=== PATIENT | female | born 1940 | race Caucasian/White ===

== ENCOUNTER → 2017-04-26 | Outpatient (CLI) | payer MEDICARE, BC ==
--- NOTE | 2017-04-26 11:22 | US ---
EXAMINATION TYPE: US thyroid st tissue head/neck DATE OF EXAM: 04/26/2017 COMPARISON: Thyroid ultrasound March 24, 2016 CLINICAL HISTORY: E04.2 MULTINODULAR GOITER. GLAND SIZE: Right Lobe: 4.1 x 1.4 x 1.6 cm Overall Parenchyma: heterogenous Left Lobe: 3.8 x 1.1 x 1.4 cm Overall Parenchyma: heterogeneous Isthmus Thickness: 0.4 cm NODULES RIGHT: # of nodules measured on right: 3 1. 0.9 X 0.7 x 1.0 cm echogenic mixed nodule at the upper pole with well-defined margins; . This n odule is wider than tall and shows no intranodular vascularity. Prior size: 0.7 x 0.5 x 0.5 cm 2. 0.7 X 0.7 x 0.4 cm mixed nodule at the mid pole with poorly defined margins; . This nodule is wi blank than tall and shows no intranodular vascularity. Prior size: 1.1 x 0.8 x 0.8 cm 3. 1.3 X 0.7 x 06 cm echogenic mixed nodule at the lower pole with well-defined margins; . This nod ule is wider than tall and shows no intranodular vascularity. Prior size: 1.5 x 1.0 x 0.9 cm LEFT: # of nodules measured on left: 3 1. 0.7 X 0.6 x 0.6 cm echogenic solid nodule at the lower pole with poorly defined margins; . This nodule is round and shows no intranodular vascularity. Prior size: not seen 2. 0.5 X 0.5 x 0.4 cm echogenic mixed nodule at the mid pole with well-defined margins; . This nodu le is wider than tall and shows intranodular vascularity. Prior size: no prior 3. 0.5 X 0.6 x 1.0 cm mixed nodule at the upper pole with poorly defined margins; . This nodule is wider than tall and shows no intranodular vascularity. Prior size:0.6x0.5x0.3 ISTHMUS: # of nodules measured in the isthmus: 0 Bilateral neck scanned, no evidence of lymphadenopathy. Thyroid gland remains normal in size and heterogeneous in appearance with scattered small nodules red emonstrated bilaterally. No new suspicious nodules are seen IMPRESSION: Findings consistent with multinodular goiter redemonstrated. No new suspicious greater than 1 cm aisha d or cystic nodules are seen.
== END | disposition home or self-care (01) ==
LOC: RADUSWWP 10:08
PROVIDERS: ATTEND Internal Medicine Endocrinology, Diabetes & Metabolism
DX: E04.2 Nontoxic multinodular goiter (principal)
CPT/HCPCS: 76536

== ENCOUNTER → 2017-05-07 | Outpatient (CLI) | payer MEDICARE, BC ==
[2017-05-07 13:18] LABS: Blood Urea Nitrogen 18 mg/dL (7-17); Non-African American GFR(MDRD) >60 (>60 ml/min/1.73 sqM)
--- NOTE | 2017-05-07 14:16 | CT ---
"EXAMINATION TYPE: CT angio abd aorta wo/w con DATE OF EXAM: 05/07/2017 HISTORY: Abdominal aortic aneurysm, without rupture CT DLP: 515.6mGycm Automated Exposure Control for Dose Reduction was Utilized. CONTRAST: CT scan of the abdomen and pelvis is performed without and with IV Contrast, patient injected with 10 0 mL of Omnipaque 350. COMPARISON: None. FINDINGS: Aorta appears to be of normal caliber however there appears to be a localized area of aortic dissecti on at the L4 level with an intimal flap. There is localized aortic ectasia measuring 2.4 cm but no di agnostic evidence of aneurysm. Eccentric soft and calcified plaque noted within the area of saccular dilation. This appears to be a short segmental area of dissection extending approximately 2.5 cm ceph alad. Diffuse atherosclerotic changes are seen. Visualized iliac vasculature of normal caliber. Visualized mesenteric vasculature demonstrates atherosclerotic changes but enhances normally. Atherosclerotic changes involving the renal arteries are noted. The abdominal viscera demonstrates no acute finding. Small periumbilical hernia noted containing peritoneal fat. Indeterminate left adrenal nodule measuring 1.6 cm. Diverticulosis of the colon. Suspect a duodenal diverticulum Hypertrophic and degenerative changes of the spine are seen at multiple levels. IMPRESSION: 1. Aorta appears to be of normal caliber however there appears to be a localized area of aortic diss ection at the L4 level with an intimal flap. There is localized aortic ectasia measuring 2.4 cm but n o diagnostic evidence of aneurysm. This appears to be a short segmental area of dissection extending approximately 2.5 cm. Extensive aortic bifurcation. 2. Indeterminate 1.6 cm left adrenal mass A Red message has been communicated to Shahid Blanton MD via the [employer] | Critical Result s ystem on 05/07/2017 2:13 PM, Message ID [id number]."
== END | disposition home or self-care (01) ==
LOC: RADCTMAIN 12:39
PROVIDERS: ATTEND Internal Medicine Cardiovascular Disease
DX: I77.819 Aortic ectasia, unspecified site (principal)
CPT/HCPCS: 82565; 84520; 75635; 36415; Q9967

== ENCOUNTER → 2018-02-07 | Outpatient (CLI) | payer MEDICARE, BC ==
--- NOTE | 2018-02-07 09:58 | MM ---
Reason for exam: additional evaluation requested from prior study. Last mammogram was performed 5 years and 5 months ago. History: Patient is postmenopausal, had previous chest radiation therapy at age 60, and has history of breast cancer at age 58. Family history of premenopausal breast cancer in mother at age 42. Benign excisional biopsy of the left breast, August 10, 2008. Excisional biopsy of the right breast, 2000. Lumpectomy of the left breast, 2000. Radiation therapy of the left breast, 2000. Took hormonal contraceptives for 1 year beginning at age 22. Taking other hormone for 18 years beginning at age 50. Physical Findings: Nurse Summary: 0.25 x 2cm nodule in the left breast at 9:30 (nurse dw). MG 3D Diag Mammo W/Cad DENNISE Bilateral CC and MLO view(s) were taken. Prior study comparison: December 28, 2016, mammogram. December 27, 2015, mammogram. September 12, 2012, CAD bilateral diagnostic mammogram. There are scattered fibroglandular densities. There are bilateral stable well circumscribed masses back to 2011. There are benign appearing scattered bilateral calcifications. No suspicious abnormality. Left post therapy changes. Right post excisional biopsy changes. These results were verbally communicated with the patient and result sheet given to the patient on 02/07/18. ASSESSMENT: Benign, BI-RAD 2 RECOMMENDATION: Follow-up diagnostic mammogram of both breasts in 1 year.
== END | disposition home or self-care (01) ==
LOC: RADMAMWWP 08:59
PROVIDERS: ATTEND Family Medicine
DX: Z08 Encounter for follow-up examination after completed treatment for malignant neoplasm (principal); Z85.3 Personal history of malignant neoplasm of breast
CPT/HCPCS: 77066; G0279

== ENCOUNTER → 2018-04-05 | Outpatient (CLI) | payer MEDICARE, BC ==
[2018-04-05 12:45] LABS: T4, Free (Free Thyroxine) 1.03 ng/dL (0.78-2.19)
== END | disposition home or self-care (01) ==
LOC: LABWHC1 11:53
PROVIDERS: ATTEND Internal Medicine Endocrinology, Diabetes & Metabolism
DX: E04.2 Nontoxic multinodular goiter (principal)
CPT/HCPCS: 36415; 84439; 84443

== ENCOUNTER 2018-04-20 10:00 | Day surgery (SDC) | payer MEDICARE, BC ==
[2018-04-15 11:49] VITALS: BMI 28.3
[~2018-04-20 10:00] MED LIST: LACTATED RINGERS 1,000 ML IV SCH
[2018-04-20 10:34] VITALS: RESP 16; TEMP 97.5
[2018-04-20] MEDS ORDERED: LIDOCAINE 1% 20 ML VIAL (10MG/ML) FOR IV START INTRADERMA ONE (10:34)
[2018-04-20] MEDS ORDERED: PROPOFOL 10 MG/ML 20 ML VIAL IV ONE (10:41)
[2018-04-20] MEDS ORDERED: LIDOCAINE 1% INJ 10MG/ML (20 ML MDV) ONE (10:41)
[2018-04-20] MEDS ORDERED: fentaNYL (PF) 50 MCG/ML 2 ML AMP ONE (10:41)
--- NOTE | 2018-04-20 10:56 | P.PCN ---
Date of Procedure: 04/20/18 Procedure(s) Performed: BRIEF HISTORY: Patient is a 77-year-old, pleasant, white female, scheduled for an upper endoscopy as a part of evaluation of long-standing history of GERD and has been on Prilosec 20 mg twice daily for several years. For the last few months she has been having worsening heartburn and epigastric pain and hence scheduled for an upper endoscopy to evaluate further. PROCEDURE PERFORMED: Esophagogastroduodenoscopy with biopsy. PREOPERATIVE DIAGNOSIS: And history of GERD/intermittent epigastric pain. IV sedation per anesthesia. PROCEDURE: After informed consent was obtained, the patient was brought into the endoscopy unit. IV sedation was administered by Anesthesia under continuous monitoring. Initially the Olympus GIF-140 video endoscope was inserted into the mouth. Esophagus intubated without any difficulty. It was gradually advanced into the stomach and duodenum and carefully examined. The bulb and the second part of the duodenum appeared normal. The scope at this time was withdrawn to the stomach, adequately insufflated with air, and upon careful examination, mucosa of the antrum, body, multiple gastric polyps and biopsies were done from this area. The cardia and the fundus appeared normal. The scope was then withdrawn into the esophagus. Small sliding Hiatal hernia noted. The GE junction was located at 36 cm from the incisors. The esophagus appeared normal. There were no erosions or ulcerations seen and the patient tolerated the procedure well. IMPRESSION: 1. Multiple gastric polyps. 2. Small sliding Hiatal hernia but no evidence of esophagitis or Gonzalez's esophagus. RECOMMENDATIONS: The findings of this examination were discussed with the patient as well as a family. She will follow with the biopsy results She was advised to continue with Prilosec 20 mg twice daily, half hour before breakfast and dinnertime and use Zantac at bedtime. She was briefly treated about antireflux measures.
[2018-04-20 11:28] VITALS: BP 154/70; PULSE 55
== END 2018-04-20 11:37 | disposition home or self-care (01) ==
LOC: ORWHC2ENDO 10:00
PROVIDERS: ATTEND Internal Medicine Gastroenterology
DX: K29.50 Unspecified chronic gastritis without bleeding (principal); K44.9 Diaphragmatic hernia without obstruction or gangrene; I25.10 Atherosclerotic heart disease of native coronary artery without angina pectoris; I10 Essential (primary) hypertension; E78.5 Hyperlipidemia, unspecified; E07.9 Disorder of thyroid, unspecified; K21.9 Gastro-esophageal reflux disease without esophagitis; G47.33 Obstructive sleep apnea (adult) (pediatric); Z79.51 Long term (current) use of inhaled steroids; Z79.82 Long term (current) use of aspirin; Z79.899 Other long term (current) drug therapy
CPT/HCPCS: 88305; 43239; J2001; J3010; J2704

== ENCOUNTER → 2018-04-21 | Outpatient (CLI) | payer MEDICARE, BC ==
--- NOTE | 2018-04-21 13:36 | US ---
EXAMINATION TYPE: US thyroid st tissue head/neck DATE OF EXAM: 04/21/2018 COMPARISON: US CLINICAL HISTORY: E04.2 Nontoxic multinodular Goiter. F/U multinodular goiter GLAND SIZE: Right Lobe: 3.7 x 1.6 x 1.6 cm Overall Parenchyma: heterogenous Left Lobe: 3.7 x 1.3 x 1.1 cm Overall Parenchyma: heterogeneous Isthmus Thickness: 0.3 cm Thyroid gland is diffusely hypervascular. NODULES RIGHT: # of nodules measured on right: 2 1. 1.2 x 0.9 x 1.0 cm hypoechoic solid nodule at the mid pole with poorly defined margins; This nodu le is wider than tall and shows intranodular vascularity. Prior size: 1.3 x 0.7 x 0.6 cm 2. 0.9 X 0.6 x 1.0 cm isoechoic solid nodule at the upper pole with well-defined margins; This nodul e is wider than tall and shows intranodular vascularity. Prior size: 0.9 x 0.7 x 1.0 cm Other sub-centimeter nodules scattered throughout lobe LEFT: # of nodules measured on left: 1 1. 0.7 X 0.4 x 0.6 cm hypoechoic solid nodule at the mid pole with poorly defined margins; This no dule is wider than tall and shows intranodular vascularity. Prior size: 0.7 x 0.6 x 0.6 cm Other sub-centimeter nodules scattered throughout lobe Bilateral neck scanned, no evidence of lymphadenopathy. Multiple nodules bilaterally IMPRESSION: Similar size of the bilateral thyroid nodules. Thyroid gland is diffusely heterogenous and hypervascu lar. Correlate with laboratory values for underlying thyroiditis.
== END | disposition home or self-care (01) ==
LOC: RADUSWWP 11:52
PROVIDERS: ATTEND Internal Medicine Endocrinology, Diabetes & Metabolism
DX: E04.2 Nontoxic multinodular goiter (principal)
CPT/HCPCS: 76536

== ENCOUNTER → 2018-09-02 | Outpatient (CLI) | payer MEDICARE, BC ==
--- NOTE | 2018-09-02 12:44 | US ---
EXAMINATION TYPE: US abdomen complete DATE OF EXAM: 09/02/2018 COMPARISON: CT CLINICAL HISTORY: R10.9 ABD PAIN. Right side ABD pain EXAM MEASUREMENTS: Liver Length: 15.9 cm Gallbladder Wall: 0.2 cm CBD: 0.6 cm Spleen: 10.2 cm Right Kidney: 10.1 x 4.0 x 4.0 cm Left Kidney: 10.3 x 4.7 x 4.2 cm Pancreas: wnl, tail obscured by overlying bowel gas Liver: Difficult to penetrate Gallbladder: wnl Evidence for sonographic Nugent's sign: No CBD: wnl Spleen: wnl Right Kidney: wnl, lower pole gassed out Left Kidney: wnl, lower pole gassed out Upper IVC: wnl Abd Aorta: Distal "bulging" measuring 2.3 cm IMPRESSION: 1. Fusiform prominence of the distal abdominal aorta with greatest AP diameter of 2.3 cm. 2. There is limitation on the examination due to bowel gas
== END | disposition home or self-care (01) ==
LOC: RADUSWWP 10:10
PROVIDERS: ATTEND Family Medicine
DX: R10.9 Unspecified abdominal pain (principal)
CPT/HCPCS: 76700

== ENCOUNTER → 2019-03-20 | Outpatient (CLI) | payer MEDICARE, BC ==
--- NOTE | 2019-03-21 07:50 | MM ---
Reason for exam: additional evaluation requested from prior study. Last mammogram was performed 1 year and 1 month ago. History: Patient is postmenopausal, had previous chest radiation therapy at age 60, and has history of breast cancer at age 58. Family history of premenopausal breast cancer in mother at age 42. Benign excisional biopsy of the left breast, August 10, 2008. Excisional biopsy of the right breast, 2000. Lumpectomy of the left breast, 2000. Radiation therapy of the left breast, 2000. Took hormonal contraceptives for 1 year beginning at age 22. Taking other hormone for 18 years beginning at age 50. Physical Findings: Patient refused breast exam. MG 3D Diag Mammo W/Cad DENNISE Bilateral CC and MLO view(s) were taken. Prior study comparison: February 07, 2018, bilateral MG 3d diag mammo w/cad DENNISE. December 28, 2016, mammogram. There are scattered fibroglandular densities. There is chronic nodularity bilaterally. Post surgical and post therapy changes in the left breast. No significant new findings when compared with previous films. These results were verbally communicated with the patient and result sheet given to the patient on 03/20/19. ASSESSMENT: Benign, BI-RAD 2 RECOMMENDATION: Routine screening mammogram of both breasts in 1 year.
== END | disposition home or self-care (01) ==
LOC: RADMAMWWP 12:21
PROVIDERS: ATTEND Family Medicine
DX: Z85.3 Personal history of malignant neoplasm of breast (principal)
CPT/HCPCS: 77066; G0279; 77062

== ENCOUNTER → 2019-03-31 | Outpatient (CLI) | payer MEDICARE, BC ==
--- NOTE | 2019-03-31 14:30 | US ---
EXAMINATION TYPE: US thyroid st tissue head/neck DATE OF EXAM: 03/31/2019 COMPARISON: US 04/21/2018 CLINICAL HISTORY: E04.2 Goiter. Follow up GLAND SIZE: Right Lobe: 4.2 x 1.3 x 1.4 cm Overall Parenchyma: heterogenous Left Lobe: 3.5 x 1.1 x 1.0 cm Overall Parenchyma: heterogeneous Isthmus Thickness: 0.2 cm NODULES RIGHT: # of nodules measured on right: 2 1. 1.7 X 1.2 x 1.4 cm hypoechoic mixed nodule at the mid pole with poorly defined margins; . This nodule is wider than tall and shows no intranodular vascularity. Prior size: 1.2 x 0.9 x 1.0 cm 2. 0.9 X 0.6 x 0.8 cm hypoechoic mixed nodule at the upper pole with poorly defined margins; . This nodule is wider than tall and shows intranodular vascularity. Prior size: 0.9 x 0.6 x 1.0 cm LEFT: # of nodules measured on left: 1 1. 0.9 X 0.5 x 0.5 cm hypoechoic mixed nodule at the mid pole with well-defined margins; . This no dule is wider than tall and shows intranodular vascularity. Prior size: 0.7 cm ISTHMUS: # of nodules measured in the isthmus: 0 Bilateral neck scanned, no evidence of lymphadenopathy. IMPRESSION: Bilateral heterogeneous & hypervascular thyroid glands with innumerable subcentimeter thyroid nodules .
[2019-03-31 15:43] LABS: T4, Free (Free Thyroxine) 1.04 ng/dL (0.78-2.19)
== END | disposition home or self-care (01) ==
LOC: RADUSWWP 13:53
PROVIDERS: ATTEND Internal Medicine Endocrinology, Diabetes & Metabolism
DX: E04.2 Nontoxic multinodular goiter (principal)
CPT/HCPCS: 36415; 76536; 84439; 84443

== ENCOUNTER → 2019-06-26 | Outpatient (CLI) | payer MEDICARE, BC ==
[2019-06-26 19:09] LABS: T4, Free (Free Thyroxine) 0.9 ng/dL (0.80-1.80)
== END | disposition home or self-care (01) ==
LOC: LABWHC1 13:04
PROVIDERS: ATTEND Internal Medicine Endocrinology, Diabetes & Metabolism
DX: E04.2 Nontoxic multinodular goiter (principal)
CPT/HCPCS: 36415; 84439; 84443

== ENCOUNTER 2019-09-18 11:28 | Day surgery (SDC) | payer MEDICARE, BC ==
[2019-09-18 11:58] VITALS: RESP 16; TEMP 98
[2019-09-18] MEDS ORDERED: ALPRAZolam 0.25 MG TAB PO STA (12:03)
[2019-09-18 12:51] VITALS: BP 201/79; PULSE 68
== END 2019-09-18 12:45 | disposition home or self-care (01) ==
LOC: RADPROMAIN 11:28
PROVIDERS: ATTEND Internal Medicine Endocrinology, Diabetes & Metabolism
DX: E04.1 Nontoxic single thyroid nodule (principal); Z53.8 Procedure and treatment not carried out for other reasons

== ENCOUNTER 2019-09-18 12:42 | Observation (INO) | payer MEDICARE, BC ==
[2019-09-18] MEDS ORDERED: ASPIRIN 81 MG PO STA (13:12)
[2019-09-18] MEDS ORDERED: NITROGLYCERIN OINT 1 INCH/GM PACKET TOPICAL STA (13:12)
[2019-09-18 13:23] LABS: Basophils % (A) 0 %; Eosinophils # (A) 0.2 k/uL (0-0.7); Eosinophils % (A) 3 %; HCT 37.2 % (34.0-46.0); HGB 12.7 gm/dL (11.4-16.0); Lymphocytes # (A) 1.6 k/uL (1.0-4.8); Lymphocytes % (A) 34 %; MCH 28.9 pg (25.0-35.0); MCHC 34.1 g/dL (31.0-37.0); MCV 84.9 fL (80.0-100.0); Mean Platelet Volume 6.5; Monocytes # (A) 0.3 k/uL (0-1.0); Monocytes % (A) 6 %; Neutrophils # (A) 2.6 k/uL (1.3-7.7); Neutrophils % (A) 54 %; Platelet Count 206 k/uL (150-450); RBC 4.39 m/uL (3.80-5.40); RDW 13.8 % (11.5-15.5); WBC 4.8 k/uL (3.8-10.6)
--- NOTE | 2019-09-18 13:25 | ED ---
General Adult HPI - General Chief complaint: Chest Pain Stated complaint: High blood pressure Time Seen by Provider: 09/18/19 12:45 Source: patient, RN notes reviewed Mode of arrival: ambulatory Limitations: no limitations - History of Present Illness Initial comments: This is a 79-year-old female presents emergency Department complaining of chest pain and some back pain. Patient states she was here at the hospital getting a biopsy done which she started having some chest pressure and pain across her whole back. Patient seemed to think that the back pain and chest pain were occurring at the same time. Patient continues to have chest and back pain. Patient denies any difficulty breathing or shortness of breath. Patient denies any diaphoretic episodes. Patient states she does have a history of high cholesterol and a family history of heart disease. Patient states she also was having high blood pressure at the time because the staff over at the outpatient facility where she was to get her biopsy took her blood pressure. Patient denies any recent fever chills. Patient denies any cough. Patient denies palpitations. Patient denies lightheadedness or dizziness. - Related Data Home Medications Medication Instructions Recorded Confirmed Aspirin EC [Ecotrin] 81 mg PO HS 04/12/14 09/18/19 Atenolol 50 mg PO HS 04/12/14 09/18/19 Biotin 5,000 mcg PO DAILY 04/12/14 09/18/19 Fenofibrate [Tricor] 54 mg PO DAILY 04/12/14 09/18/19 Omeprazole [PriLOSEC] 20 mg PO AC-BID 04/12/14 09/18/19 Simvastatin [Zocor] 40 mg PO HS 04/12/14 09/18/19 Fluticasone Nasal [place] [Flonase 2 spr EA NOSTRIL DAILY 04/15/18 09/18/19 Nasal [place]] Famotidine [Pepcid] 20 mg PO HS 09/18/19 09/18/19 Melatonin 3 mg PO HS 09/18/19 09/18/19 Allergies Allergy/AdvReac Type Severity Reaction Status Date / Time erythromycin base AdvReac Intermediate Nausea Verified 09/18/19 13:38 [Erythromycin Base] ADHESIVE TAPE AdvReac Intermediate BLISTERS Uncoded 09/18/19 11:58 Review of Systems ROS Statement: Those systems with pertinent positive or pertinent negative responses have been documented in the HPI. ROS Other: All systems not noted in ROS Statement are negative. Past Medical History Past Medical History: Cancer, GERD/Reflux, Hyperlipidemia, Thyroid Disorder Additional Past Medical History / Comment(s): THYROID NODULES,ARRYTHMIA-PVC'S,, BREAST CANCER History of Any Multi-Drug Resistant Organisms: None Reported Past Surgical History: Breast Surgery, Heart Catheterization, Tubal Ligation Additional Past Surgical History / Comment(s): LEFT BREAST LUMPECTOMY, RIGHT BREAST BIOPSY,COLONOSCOPY,EGD, Past Anesthesia/Blood Transfusion Reactions: No Reported Reaction Past Psychological History: Anxiety Smoking Status: Former smoker Past Alcohol Use History: Occasional Past Drug Use History: None Reported - Past Family History Mother Family Medical History: Cancer Additional Family Medical History / Comment(s): BREAST. General Exam - General Exam Comments Initial Comments: GENERAL: Patient is well-developed and well-nourished. Patient is nontoxic and well- hydrated and is in mild distress. ENT: Neck is soft and supple. No significant lymphadenopathy is noted. Oropharynx i s clear. Moist mucous membranes. Neck has full range of motion without eliciting any pain. EYES: The sclera were anicteric and conjunctiva were pink and moist. Extraocular movements were intact and pupils were equal round and reactive to light. Eyelids were unremarkable. PULMONARY: Unlabored respirations. Good breath sounds bilaterally. No audible rales rhonchi or wheezing was noted. CARDIOVASCULAR: There is a regular rate and rhythm without any murmurs gallops or rubs. ABDOMEN: Soft and nontender with normal bowel sounds. No palpable organomegaly was noted. There is no palpable pulsatile mass. SKIN: Skin is clear with no lesions or rashes and otherwise unremarkable. NEUROLOGIC: Patient is alert and oriented x3. Cranial nerves II through XII are grossly intact. Motor and sensory are also intact. Normal speech, volume and content. Symmetrical smile. MUSCULOSKELETAL: Normal extremities with adequate strength and full range of motion. No lower extremity swelling or edema. No calf tenderness. LYMPHATICS: No significant lymphadenopathy is noted PSYCHIATRIC: Normal psychiatric evaluation. Limitations: no limitations Course Vital Signs 09/18/19 09/18/19 12:44 14:35 Temperature 97.7 F Pulse Rate 61 56 L Respiratory 18 18 Rate Blood Pressure 197/73 167/73 O2 Sat by Pulse 98 98 Oximetry Medical Decision Making - Medical Decision Making EKG shows a normal sinus rhythm at 60 bpm [place] interval is 150 QRS is 92 QT interval 418 QTC is 418 patient's EKG shows no ST segment elevation or depression or T wave abnormalities are noted. Patient states the Nitropaste and aspirin took away her pain completely. Patient feels considerably better. Patient's chest x-ray showed no acute abnormality. I spoke with Dr. Vidales he agreed to admit the patient admitted the patient wrote admitting orders and consult cardiology. - Lab Data Result diagrams: 09/18/19 13:05 09/18/19 13:05 Lab Results 09/18/19 09/18/19 09/18/19 Range/Units 13:05 13:05 13:05 WBC 4.8 (3.8-10.6) k/uL RBC 4.39 (3.80-5.40) m/uL Hgb 12.7 (11.4-16.0) gm/dL Hct 37.2 (34.0-46.0) % MCV 84.9 (80.0-100.0) fL MCH 28.9 (25.0-35.0) pg MCHC 34.1 (31.0-37.0) g/dL RDW 13.8 (11.5-15.5) % Plt Count 206 (150-450) k/uL Neutrophils % 54 % Lymphocytes % 34 % Monocytes % 6 % Eosinophils % 3 % Basophils % 0 % Neutrophils # 2.6 (1.3-7.7) k/uL Lymphocytes # 1.6 (1.0-4.8) k/uL Monocytes # 0.3 (0-1.0) k/uL Eosinophils # 0.2 (0-0.7) k/uL Basophils # 0.0 (0-0.2) k/uL PT 10.3 (9.0-12.0) sec INR 1.0 (<1.2) APTT 22.7 (22.0-30.0) sec Sodium 141 (137-145) mmol/L Potassium 4.2 (3.5-5.1) mmol/L Chloride 106 (98-107) mmol/L Carbon Dioxide 28 (22-30) mmol/L Anion Gap 7 mmol/L BUN 15 (7-17) mg/dL Creatinine 0.72 (0.52-1.04) mg/dL Est GFR (CKD-EPI)AfAm >90 (>60 ml/min/1.73 sqM) Est GFR (CKD-EPI)NonAf 81 (>60 ml/min/1.73 sqM) Glucose 90 (74-99) mg/dL Calcium 9.6 (8.4-10.2) mg/dL Magnesium 1.5 L (1.6-2.3) mg/dL Total Bilirubin 0.4 (0.2-1.3) mg/dL AST 24 (14-36) U/L ALT 19 (9-52) U/L Alkaline Phosphatase 71 (38-126) U/L Troponin I (0.000-0.034) ng/mL Total Protein 7.0 (6.3-8.2) g/dL Albumin 4.1 (3.5-5.0) g/dL 09/18/19 Range/Units 13:05 WBC (3.8-10.6) k/uL RBC (3.80-5.40) m/uL Hgb (11.4-16.0) gm/dL Hct (34.0-46.0) % MCV (80.0-100.0) fL MCH (25.0-35.0) pg MCHC (31.0-37.0) g/dL RDW (11.5-15.5) % Plt Count (150-450) k/uL Neutrophils % % Lymphocytes % % Monocytes % % Eosinophils % % Basophils % % Neutrophils # (1.3-7.7) k/uL Lymphocytes # (1.0-4.8) k/uL Monocytes # (0-1.0) k/uL Eosinophils # (0-0.7) k/uL Basophils # (0-0.2) k/uL PT (9.0-12.0) sec INR (<1.2) APTT (22.0-30.0) sec Sodium (137-145) mmol/L Potassium (3.5-5.1) mmol/L Chloride (98-107) mmol/L Carbon Dioxide (22-30) mmol/L Anion Gap mmol/L BUN (7-17) mg/dL Creatinine (0.52-1.04) mg/dL Est GFR (CKD-EPI)AfAm (>60 ml/min/1.73 sqM) Est GFR (CKD-EPI)NonAf (>60 ml/min/1.73 sqM) Glucose (74-99) mg/dL Calcium (8.4-10.2) mg/dL Magnesium (1.6-2.3) mg/dL Total Bilirubin (0.2-1.3) mg/dL AST (14-36) U/L ALT (9-52) U/L Alkaline Phosphatase (38-126) U/L Troponin I <0.012 (0.000-0.034) ng/mL Total Protein (6.3-8.2) g/dL Albumin (3.5-5.0) g/dL Disposition Clinical Impression: Chest pain Disposition: ADMITTED IP TO THIS HOSP Referrals: Tracie Aly MD [Primary Care Provider] - 1-2 days Time of Disposition: 15:27
[2019-09-18 13:30] LABS: ALT 19 U/L (9-52); AST 24 U/L (14-36); African American GFR (CKD) >90 (>60 ml/min/1.73 sqM); Albumin 4.1 g/dL (3.5-5.0); Alkaline Phosphatase 71 U/L (38-126); Anion Gap 7 mmol/L; Blood Urea Nitrogen 15 mg/dL (7-17); Calcium 9.6 mg/dL (8.4-10.2); Carbon Dioxide 28 mmol/L (22-30); Chloride 106 mmol/L (98-107); Glucose 90 mg/dL (74-99); Magnesium 1.5 mg/dL (1.6-2.3); Non-African American GFR(CKD) 81 (>60 ml/min/1.73 sqM); Potassium 4.2 mmol/L (3.5-5.1); Sodium 141 mmol/L (137-145); Total Bilirubin 0.4 mg/dL (0.2-1.3)
[2019-09-18 13:35] LABS: Partial Thromboplastin Time 22.7 sec (22.0-30.0); Prothrombin Time 10.3 sec (9.0-12.0)
--- NOTE | 2019-09-18 13:59 | XR ---
EXAMINATION TYPE: XR chest 2V DATE OF EXAM: 09/18/2019 COMPARISON: NONE TECHNIQUE: PA and lateral views submitted. HISTORY: Chest pressure FINDINGS: The lungs are clear and there is no pneumothorax, pleural effusion, or focal pneumonia. Mild thicke leela of the right paratracheal stripe. Atherosclerotic change aorta. Degenerative changes spine and h yperinflation of the lungs. Arthropathy of the shoulders. IMPRESSION: 1. Mild thickening of the right paratracheal stripe. Short-term follow-up CT of the chest is recommen ded for further evaluation.
[2019-09-18] MEDS ORDERED: NITROGLYCERIN SL TABS 0.4 MG TAB SUBLINGUAL PRN (15:28)
[2019-09-18] MEDS ORDERED: Magnesium Replacement Protocol 1 EACH MISC MISCELLANE PRN (15:37)
[2019-09-18] MEDS ORDERED: ACETAMINOPHEN TAB 325 MG TAB PO PRN (15:59)
[2019-09-18] MEDS ORDERED: ONDANSETRON 4 MG/2 ML VIAL IVP PRN (15:59)
--- NOTE | 2019-09-18 16:00 | P.HPIM ---
History of Present Illness H&P Date: 09/18/19 Chief Complaint: Chest pain This is a 79-year-old female patient of Dr. navarro. Patient presented for an elective thyroid biopsy today but prior to procedure patient reports that she started having back pain and chest pain with elevated blood pressure. Patient actually reports the back pain started last night but chest pain and high blood pressure did not start to occur until prior to procedure. Patient was instructed to go to ER for further evaluation. Patient reports that her chest pain and back pain did have relief when nitro paste was applied. Patient does have a past medical history of GERD hyperlipidemia, thyroid isn't, breast biopsy from her previous cardiac cath 5 years ago with no stents, anxiety and last stress test was 2 years ago which was normal. She does report that her sister and father both had heart attacks. Initial troponin negative. Patient denies any recent illness or cough. Chest x-ray was completed showing mild thickening of the right paratracheal stripe. Short-term follow-up CT of the chest is recommended for further evaluation. EKG completed showing normal sinus rhythm normal EKG. At this time patient denies chest pain or shortness of breath. Patient denies nausea vomiting or diarrhea. Patient denies any urinary burning or frequency Review of Systems Please refer to HPI otherwise unremarkable Past Medical History Past Medical History: Cancer, GERD/Reflux, Hyperlipidemia, Thyroid Disorder Additional Past Medical History / Comment(s): THYROID NODULES,ARRYTHMIA-PVC'S,, BREAST CANCER History of Any Multi-Drug Resistant Organisms: None Reported Past Surgical History: Breast Surgery, Heart Catheterization, Tubal Ligation Additional Past Surgical History / Comment(s): LEFT BREAST LUMPECTOMY, RIGHT BREAST BIOPSY,COLONOSCOPY,EGD, Past Anesthesia/Blood Transfusion Reactions: No Reported Reaction Past Psychological History: Anxiety Smoking Status: Former smoker Past Alcohol Use History: Occasional Past Drug Use History: None Reported - Past Family History Mother Family Medical History: Cancer Additional Family Medical History / Comment(s): BREAST. Medications and Allergies Home Medications Medication Instructions Recorded Confirmed Type Aspirin EC [Ecotrin] 81 mg PO HS 04/12/14 09/18/19 History Atenolol 50 mg PO HS 04/12/14 09/18/19 History Biotin 5,000 mcg PO DAILY 04/12/14 09/18/19 History Fenofibrate [Tricor] 54 mg PO DAILY 04/12/14 09/18/19 History Omeprazole [PriLOSEC] 20 mg PO AC-BID 04/12/14 09/18/19 History Simvastatin [Zocor] 40 mg PO HS 04/12/14 09/18/19 History Fluticasone Nasal [place] [Flonase 2 spr EA NOSTRIL DAILY 04/15/18 09/18/19 History Nasal [place]] Famotidine [Pepcid] 20 mg PO HS 09/18/19 09/18/19 History Melatonin 3 mg PO HS 09/18/19 09/18/19 History Allergies Allergy/AdvReac Type Severity Reaction Status Date / Time erythromycin base AdvReac Intermediate Nausea Verified 09/18/19 13:38 [Erythromycin Base] ADHESIVE TAPE AdvReac Intermediate BLISTERS Uncoded 09/18/19 11:58 Physical Exam Vitals: Vital Signs Temp Pulse Resp BP Pulse Ox 09/18/19 15:41 98.0 F 09/18/19 15:30 71 16 162/74 99 09/18/19 15:00 64 16 167/73 96 09/18/19 14:35 56 L 18 167/73 98 09/18/19 14:30 56 L 16 180/74 98 09/18/19 12:44 97.7 F 61 18 197/73 98 Intake and Output 09/18/19 09/18/19 09/18/19 06:59 14:59 22:59 Other: Weight 68.039 kg Head normocephalic Neck supple Lungs clear to auscultation bilaterally no wheezing or crackles Heart regular rate and rhythm S1-S2, no rub or gallop Abdomen is soft nontender nondistended positive bowel sounds no hepatosplenomegaly Extremities no edema Neuro alert and orientated to 3 Results CBC & Chem 7: 09/18/19 13:05 09/18/19 13:05 Labs: Abnormal Lab Results - Last 24 Hours (Table) 09/18/19 Range/Units 13:05 Magnesium 1.5 L (1.6-2.3) mg/dL Assessment and Plan Assessment: 1. Chest pain. Initial troponin negative. Cardiology services have been consulted. Serial troponins ordered. EKG showing normal sinus rhythm normal ECG. Last stress test reported 2 years ago 2. Hypertensive urgency. Patient reports that her blood pressure was over 200 prior to biopsy. Blood pressure has improved. Homans resume cardiology consult placed 3. Thickening of the right paratracheal stripe seen on chest x-ray. Pulmonary service was consulted 4. Essential hypertension. Home resumed 5. History of breast cancer 6. History of thyroid nodules. Patient was supposed to have thyroid biopsy today 7. History of GERD 8. History of hyperlipidemia. Home meds resumed 9. Ex-smoker 10. History of anxiety 11. Hypomagnesemia. Magnesium replacement protocol. Repeat labs ordered DVT prophylaxis heparin. GI prophylaxis Pepcid Time with Patient: Greater than 30 (Greater than 60% of the total time spent in counseling and coordination of care. I performed an examination of the patient and discussed their management with the Nurse Practitioner. I have reviewed the Nurse Practitioner's notes and agree with the documented findings and plan of care)
[2019-09-18] MEDS: MAGNESIUM SULFATE-D5W PMX 1 GM in DEXTROSE/WATER 1 100ML.BAG IVPB SCH ×2 (16:38→17:36)
[2019-09-18 16:43] VITALS: RESP 18
[2019-09-18] MEDS: PANTOPRAZOLE 40 MG TABLET PO SCH (17:42)
[2019-09-18] MEDS ORDERED: ATENOLOL 50 MG TAB PO SCH (21:00)
[2019-09-18] MEDS ORDERED: MELATONIN 3 MG TABLET PO SCH (21:00)
[2019-09-18] MEDS ORDERED: FAMOTIDINE 20 MG TAB PO SCH (21:00)
[2019-09-18] MEDS ORDERED: ATORVASTATIN 20 MG TAB PO SCH (21:00)
[2019-09-18] MEDS: NITROGLYCERIN OINT 1 INCH/GM PACKET TOPICAL SCH (21:13)
[2019-09-18] MEDS: HEPARIN SODIUM,PORCINE 5,000 UNIT/ML 1 ML VIAL SQ SCH (21:13)
[2019-09-19] MEDS: NITROGLYCERIN OINT 1 INCH/GM PACKET TOPICAL SCH ×2 (00:23→06:06)
[2019-09-19 04:40] VITALS: TEMP 97.8
[2019-09-19 05:28] LABS: Basophils % (A) 0 %; Eosinophils # (A) 0.2 k/uL (0-0.7); Eosinophils % (A) 4 %; HCT 32.7 % (34.0-46.0); HGB 11.2 gm/dL (11.4-16.0); Lymphocytes # (A) 1.8 k/uL (1.0-4.8); Lymphocytes % (A) 37 %; MCH 29.1 pg (25.0-35.0); MCHC 34.3 g/dL (31.0-37.0); Mean Platelet Volume 7.3; Monocytes # (A) 0.3 k/uL (0-1.0); Monocytes % (A) 6 %; Neutrophils # (A) 2.4 k/uL (1.3-7.7); Neutrophils % (A) 50 %; Platelet Count 179 k/uL (150-450); RBC 3.85 m/uL (3.80-5.40); WBC 4.9 k/uL (3.8-10.6)
[2019-09-19 05:38] LABS: ALT 21 U/L (9-52); AST 20 U/L (14-36); African American GFR (CKD) >90 (>60 ml/min/1.73 sqM); Albumin 3.4 g/dL (3.5-5.0); Alkaline Phosphatase 65 U/L (38-126); Anion Gap 6 mmol/L; Blood Urea Nitrogen 16 mg/dL (7-17); Carbon Dioxide 26 mmol/L (22-30); Chloride 109 mmol/L (98-107); Cholesterol 171 mg/dL (<200); Glucose 101 mg/dL (74-99); HDL Cholesterol 45 mg/dL (40-60); LDL Cholesterol,Calculated 74 mg/dL (0-99); Magnesium 1.7 mg/dL (1.6-2.3); Non-African American GFR(CKD) 85 (>60 ml/min/1.73 sqM); Sodium 141 mmol/L (137-145); Total Bilirubin 0.2 mg/dL (0.2-1.3); Triglycerides 261 mg/dL (<150)
[2019-09-19] MEDS ORDERED: CAFFEINE CITRATE 60 MG/3 ML VIAL IV PRN (07:56)
[2019-09-19] MEDS ORDERED: AMINOPHYLLINE 500 MG/20 ML VIAL IV PRN (07:56)
[2019-09-19] MEDS ORDERED: DIPYRIDAMOLE IV ONE (08:00)
[2019-09-19] MEDS ORDERED: SODIUM CHLORIDE 0.9% 1,000 ML IV SCH (08:00)
[2019-09-19] MEDS ORDERED: LORazepam 0.5 MG TAB PO ONE (08:00)
[2019-09-19] MEDS ORDERED: SODIUM CHLORIDE 0.9% IV ONE (08:00)
[2019-09-19] MEDS ORDERED: FENOFIBRATE 54 MG TAB PO SCH (09:00)
[2019-09-19] MEDS ORDERED: ASPIRIN 81 MG PO SCH (09:00)
[2019-09-19] MEDS ORDERED: NON FORMULARY DRUG (Biotin [Biotin] 5,000 MCG) PO SCH (09:00)
[2019-09-19] MEDS ORDERED: LOSARTAN 50 MG TAB PO SCH (09:00)
[2019-09-19] MEDS ORDERED: FLUTICASONE 50MCG/SPRAY NASAL 16GM EA NOSTRIL SCH (09:00)
[2019-09-19] MEDS ORDERED: ATENOLOL 50 MG TAB PO SCH (09:00)
[2019-09-19] MEDS ORDERED: ASPIRIN 325 MG TAB PO SCH (09:00)
--- NOTE | 2019-09-19 09:44 | P.CRDCN ---
History of Present Illness History of present illness: This is a pleasant 79-year-old female past medical history significant for hypertension, dyslipidemia, abdominal aortic aneurysm with intimal dissection 2017, history of breast cancer and former nicotine dependence. She follows in the office with Dr. Blanton. She denies history of coronary artery disease however 2 siblings have had premature CAD. We have been asked to see her in consultation secondary to chest discomfort. She was undergoing a thyroid biopsy yesterday. When she arrived for her procedure she states her blood pressure was extremely elevated. She then developed a discomfort across her back and chest described as a tight squeezing sensation. She does recall having vague back discomfort Wednesday evening but not chest pain until prior to the biopsy. Her symptoms have subsided. Blood pressure on arrival is 197/73 and 180/74. Current daily cardiac medications include atenolol 50 mg daily, aspirin 81 mg daily, fenofibrate 54 mg daily and simvastatin 40 mg daily. She is compliant with her medications. She does suffer from anxiety especially related to medical procedures. Blood pressure this morning 157/70 with a heart rate of 63. She denies associated shortness of breath, dizziness, palpitations, nausea, vomiting or diaphoresis. She is seen and examined resting comfortably lying flat in bed in no acute distress. She denies ongoing chest discomfort or back discomfort. EKG reveals sinus mechanism heart rate of 60. No acute ST or T wave abnor malities noted. Chest x-ray reveals mild thickening of the right paratracheal strip. Laboratory data reviewed, WBC 4.9, hemoglobin 11.2, platelets 179, sodium 141, potassium 4.0, creatinine 0.64, magnesium on admission 1. 5 repeat today 1.7, cardiac enzymes negative 3, LDL 74 and triglycerides 261. Most recent stress test with a Lexiscan stress test performed in the office in 2017 was negative for reversible cardiac ischemia. At the time of my exam: CONSTITUTIONAL: Denies fever. Denies chills. EYES: Denies blurred vision. Denies vision changes. Denies eye pain. EARS, NOSE, MOUTH & THROAT: Denies headache. Denies sore throat. Denies ear pain. CARDIOVASCULAR: Denies chest pain. Denies shortness of breath. Denies orthopnea. Denies PND. Denies palpitations. RESPIRATORY: Denies cough. GASTROINTESTINAL: Denies abdominal pain. Denies diarrhea. Denies constipation. Denies nausea. Denies vomiting. MUSCULOSKELETAL: Denies myalgias. INTEGUMENTARY: Denies pruitis. Denies rash. NEUROLOGIC: Denies numbness. Denies tingling. Denies weakness. PSYCHIATRIC: Denies anxiety. Denies depression. ENDOCRINE: Denies fatigue. Denies weight change. Denies polydipsia. Denies polyurina. GENITOURINARY: Denies burning, hematuria or urgency with micturation. HEMATOLOGIC: Denies history of anemia. Denies bleeding. Blood pressure 157/70 heart rate 63 afebrile maintaining oxygen saturation on room air GENERAL: This is a 79-year-old female in no apparent distress at the time of my examination. HEENT: Head is atraumatic, normocephalic. Pupils are equal, round. Sclerae anicteric. Conjunctivae are clear. Mucous membranes of the mouth are moist. Neck is supple. There is no jugular venous distention. No carotid bruit is heard. LUNGS: Clear to auscultation no wheezes, rales or rhonchi. No chest wall tenderness is noted on palpation or with deep breathing. HEART: Regular rate and rhythm without murmurs, rubs or gallops. S1 and S2 heard. ABDOMEN: Soft, nontender. Bowel sounds are heard. No organomegaly noted. EXTREMITIES: No evidence of peripheral edema and no calf tenderness noted. VASCULAR: Radial and dorsalis pedis pulses palpated, no evidence of clubbing. NEUROLOGIC: Patient is awake, alert and oriented x3. ASSESSMENT Chest pain, atypical. An acute coronary event has been ruled out. Hypertension, uncontrolled Abdominal aortic dissection L4 level within the intimal flap 2016. Follows with Dr. Smith. Follow up ultrasound in Dr. Smith's office shows stable findings 10/2018 Dyslipidemia Former nicotine dependence PLAN An acute coronary event has been ruled out. Discontinue nitropaste. Add losartan to her daily regimen. Perform persantine stress test to assess for reversible cardiac ischemia. She experiences claustrophobia and anxiety while doing this test and is requesting some form of anxiety mediation prior too testing. We will give a small dose of PO ativan. Hydrate with 0.9% NS at 100cc/hr. Thank you kindly for this consultation. Nurse Practitioner note has been reviewed, I agree with a documented findings and plan of care. Patient was seen and examined. Past Medical History Past Medical History: Cancer, GERD/Reflux, Hyperlipidemia, Thyroid Disorder Additional Past Medical History / Comment(s): THYROID NODULES,ARRYTHMIA-PVC'S,, BREAST CANCER History of Any Multi-Drug Resistant Organisms: None Reported Past Surgical History: Breast Surgery, Heart Catheterization, Tubal Ligation Additional Past Surgical History / Comment(s): LEFT BREAST LUMPECTOMY, RIGHT BREAST BIOPSY,COLONOSCOPY,EGD, Past Anesthesia/Blood Transfusion Reactions: No Reported Reaction Past Psychological History: Anxiety Additional Psychological History / Comment(s): MINOR ANXIETY. Smoking Status: Former smoker Past Alcohol Use History: Occasional Additional Past Alcohol Use History / Comment(s): QUIT SMOKING 30 + YRS AGO Past Drug Use History: None Reported - Past Family History Mother Family Medical History: Cancer Additional Family Medical History / Comment(s): BREAST. Medications and Allergies Home Medications Medication Instructions Recorded Confirmed Type Aspirin EC [Ecotrin] 81 mg PO HS 04/12/14 09/18/19 History Atenolol 50 mg PO HS 04/12/14 09/18/19 History Biotin 5,000 mcg PO DAILY 04/12/14 09/18/19 History Fenofibrate [Tricor] 54 mg PO DAILY 04/12/14 09/18/19 History Omeprazole [PriLOSEC] 20 mg PO AC-BID 04/12/14 09/18/19 History Simvastatin [Zocor] 40 mg PO HS 04/12/14 09/18/19 History Fluticasone Nasal [place] [Flonase 2 spr EA NOSTRIL DAILY 04/15/18 09/18/19 History Nasal [place]] Famotidine [Pepcid] 20 mg PO HS 09/18/19 09/18/19 History Melatonin 3 mg PO HS 09/18/19 09/18/19 History Allergies Allergy/AdvReac Type Severity Reaction Status Date / Time erythromycin base AdvReac Intermediate Nausea Verified 09/18/19 13:38 [Erythromycin Base] ADHESIVE TAPE AdvReac Intermediate BLISTERS Uncoded 09/18/19 11:58 Physical Exam Vitals: Vital Signs Temp Pulse Pulse Resp BP BP Pulse Ox 09/19/19 07:30 97.8 F 63 18 157/70 98 09/19/19 03:47 97.8 F 66 18 139/64 96 09/18/19 23:45 98.2 F 67 18 146/64 95 10/28/19 19:08 97.8 F 66 18 145/66 98 09/18/19 17:24 95 09/18/19 16:58 97.7 F 70 18 162/72 97 09/18/19 16:41 98.8 F 67 18 149/63 99 09/18/19 16:00 64 12 175/76 98 09/18/19 15:41 98.0 F 09/18/19 15:30 71 16 162/74 99 09/18/19 15:00 64 16 167/73 96 09/18/19 14:35 56 L 18 167/73 98 09/18/19 14:30 56 L 16 180/74 98 09/18/19 12:44 97.7 F 61 18 197/73 98 Intake and Output 09/18/19 09/19/19 09/19/19 22:59 06:59 14:59 Other: Voiding Method Toilet Toilet # Voids 1 Results 09/19/19 05:11 09/19/19 05:11 Cardiac Enzymes 09/18/19 09/18/19 09/18/19 Range/Units 13:05 13:05 19:34 AST 24 (14-36) U/L Troponin I <0.012 <0.012 (0.000-0.034) ng/mL 09/19/19 09/19/19 Range/Units 00:37 05:11 AST 20 (14-36) U/L Troponin I <0.012 (0.000-0.034) ng/mL Coagulation 09/18/19 Range/Units 13:05 PT 10.3 (9.0-12.0) sec APTT 22.7 (22.0-30.0) sec Lipids 09/19/19 Range/Units 05:11 Triglycerides 261 H (<150) mg/dL Cholesterol 171 (<200) mg/dL HDL Cholesterol 45 (40-60) mg/dL CBC 09/18/19 09/19/19 Range/Units 13:05 05:11 WBC 4.8 4.9 (3.8-10.6) k/uL RBC 4.39 3.85 (3.80-5.40) m/uL Hgb 12.7 11.2 L (11.4-16.0) gm/dL Hct 37.2 32.7 L (34.0-46.0) % Plt Count 206 179 (150-450) k/uL Comprehensive Metabolic Panel 09/18/19 09/19/19 Range/Units 13:05 05:11 Sodium 141 141 (137-145) mmol/L Potassium 4.2 4.0 (3.5-5.1) mmol/L Chloride 106 109 H (98-107) mmol/L Carbon Dioxide 28 26 (22-30) mmol/L BUN 15 16 (7-17) mg/dL Creatinine 0.72 0.64 (0.52-1.04) mg/dL Glucose 90 101 H (74-99) mg/dL Calcium 9.6 9.0 (8.4-10.2) mg/dL AST 24 20 (14-36) U/L ALT 19 21 (9-52) U/L Alkaline Phosphatase 71 65 (38-126) U/L Total Protein 7.0 6.0 L (6.3-8.2) g/dL Albumin 4.1 3.4 L (3.5-5.0) g/dL Current Medications Generic Name Dose Route Start Last Admin Trade Name Freq PRN Reason Stop Dose Admin Acetaminophen 650 mg 09/18/19 15:59 09/19/19 06:37 Tylenol Tab PO 650 mg Q6HR PRN Administration Fever and/ or Mild Pain Aminophylline 100 mg 09/19/19 07:56 Aminophylline IV 09/20/19 07:57 ONCE PRN Patient Response Aspirin 81 mg 09/19/19 09:00 Aspirin PO DAILY [facility] Atenolol 50 mg 09/19/19 09:00 Tenormin PO DAILY [facility] Atorvastatin Calcium 20 mg 09/18/19 21:00 09/18/19 21:13 Lipitor PO 20 mg HS ANJELICA Administration Caffeine Citrate 60 mg 09/19/19 07:56 Cafcit Inj IV 09/20/19 07:57 ONCE PRN Patient Response Famotidine 20 mg 09/18/19 21:00 09/18/19 21:14 Pepcid PO 20 mg HS ANJELICA Administration Fenofibrate 54 mg 09/19/19 09:00 Lofibra PO DAILY [facility] Fluticasone Propionate 2 spray 09/19/19 09:00 Flonase Nasal [place] EA NOSTRIL DAILY [facility] Heparin Sodium (Porcine) 5,000 unit 10/28/19 21:00 09/18/19 21:13 Heparin SQ 5,000 unit Q12HR ANJELICA Administration Sodium Chloride 1,000 mls @ 100 mls/hr 09/19/19 08:00 09/19/19 08:30 Saline 0.9% IV 100 mls/hr .Q10H ANJELICA Administration Losartan Potassium 100 mg 09/19/19 09:00 Cozaar PO DAILY ANJELICA Melatonin 3 mg 09/18/19 21:00 09/18/19 21:14 Melatonin PO 3 mg HS ANJELICA Administration Miscellaneous Information 1 each 09/18/19 15:37 Magnesium Per Protocol MISCELLANE DAILY PRN Per Protocol Protocol Nitroglycerin 0.4 mg 09/18/19 15:28 Nitrostat SUBLINGUAL Q5M PRN Chest Pain Ondansetron HCl 4 mg 09/18/19 15:59 Zofran IVP Q6HR PRN Vomiting Pantoprazole Sodium 40 mg 09/18/19 17:30 09/18/19 17:42 Protonix PO 40 mg AC-BID ANJELICA Administration Intake and Output 09/18/19 09/19/19 09/19/19 22:59 06:59 14:59 Other: Voiding Method Toilet Toilet # Voids 1 09/19/19 05:11 09/19/19 05:11
[2019-09-19] MEDS ORDERED: AMINOPHYLLINE 500 MG/20 ML VIAL IV ONE (09:50)
[2019-09-19] MEDS: PANTOPRAZOLE 40 MG TABLET PO SCH (10:35)
[2019-09-19] MEDS: HEPARIN SODIUM,PORCINE 5,000 UNIT/ML 1 ML VIAL SQ SCH (10:35)
--- NOTE | 2019-09-19 11:08 | NM ---
EXAMINATION TYPE: NM stress persantine cardiolit DATE OF EXAM: 09/19/2019 COMPARISON: NONE HISTORY: Chest pain TECHNIQUE: After the intravenous administration of 10.5 mCi Tc 99m Sestamibi - Cardiolite resting SP ECT images acquired 50 minutes post injection. The patient received 38.5 mg Persantine, 26.3 mCi Tc 99m Sestamibi - Stress images obtained 50 minute s post injection FINDINGS: Review of stress and rest SPECT images demonstrates no distinct perfusion abnormality. Fixed defect o f the ventricular apex is likely related to physiologic apical thinning and greater on rest than stre ss images on the raw data. Gated analysis shows normal wall motion with an estimated left ventricula r ejection fraction of 55 %. TID is calculated within normal limits at 1.13. IMPRESSION: No scintigraphic evidence for reversible ischemia. Physiologic apical thinning.
[2019-09-19 11:27] VITALS: BP 165/75; PULSE 67
--- NOTE | 2019-09-19 12:19 | CONS ---
CONSULTATION PULMONARY/CRITICAL CARE CONSULTATION: DATE OF SERVICE: 09/19/2019 This is a 79-year-old female who presented to the emergency department with complaints of chest pain and some back pain. She apparently was in the hospital getting a biopsy done. Anyway, the patient had a stress test today. Apparently, the stress test was negative. We were consulted because the chest x-ray revealed a thickened right paratracheal stripe. The radiologist recommended a CT scan of the chest. The patient did smoke for about 10 years or so many years back. She has no history of any chronic lung disease. She denies any shortness of breath, chest tightness, coughing, wheezing, phlegm production, hemoptysis, or any pulmonary complaints for that matter. Because her stress test was negative, she was going to be discharged home. The patient will see me in the office after discharge and at that time will go ahead and investigate this potential thickened right peritracheal stripe with a CT scan. Again, she denies all pulmonary complaints. HOME MEDICATIONS: Reviewed. She is on aspirin, atenolol, biotin, Tricor, Prilosec, Zocor, Flonase nasal spray, Pepcid, and melatonin. ALLERGIES: Include ERYTHROMYCIN and ADHESIVE TAPES. MEDICAL HISTORY: Includes gastroesophageal reflux disease, hyperlipidemia, thyroid nodules, breast cancer, restless legs syndrome, and PVCs. SURGICAL HISTORY: Includes breast biopsy, heart catheterization, tubal ligation, left breast lumpectomy, right breast biopsy, colonoscopy and EGD. SOCIAL HISTORY: Positive for about 10 or 12 years of tobacco use many years back. She has not smoked recently. Drinks alcohol occasionally. No illicit drug use. FAMILY HISTORY: Positive for mother with breast cancer. REVIEW OF SYSTEMS: CONSTITUTIONAL: Negative. NEUROLOGIC: Negative. HEENT; Negative. CARDIOVASCULAR: Chest pain. PULMONARY: Negative. GI: Negative. : Negative. RHEUMATOLOGIC: Negative. IMMUNOLOGIC: Negative. ENDOCRINOLOGIC: Negative. Current vital signs are reviewed, temperature 97.8, heart rate 67, respiratory rate 18, blood pressure 165/75 mean 105, room air saturation 98%. Appears in no acute distress. HEENT: Examination is grossly unremarkable. Mucous membranes are moist. No oral lesions. NECK: Supple. Full range of motion. No adenopathy or thyromegaly. Neck veins are flat. CARDIOVASCULAR: Examination reveals regular rhythm and rate. S1, S2 normal. LUNGS: Reveal clear breath sounds equal. No wheezes, rhonchi, or crackles. ABDOMEN: Soft. Bowel sounds are heard. EXTREMITIES: Intact. No cyanosis, clubbing, or edema. SKIN: Without rash. NEUROLOGIC: Examination is brief but nonfocal. LABS: Reviewed. CBC is essentially normal. Hemoglobin is a bit low at 11.2. Sodium 141, potassium 4, chloride is 109, CO2 is 26, anion gap is 6. BUN and creatinine were 16 and 0.64. Total protein 6, albumin 3.4. Troponins were negative x3. Chest x-ray is reviewed. It shows a mildly thickened right peritracheal stripe. The Persantine stress test was negative for reversible ischemia. Medications are reviewed. ASSESSMENT: 1. Possible thickened right paratracheal stripe, which may relate to some underlying adenopathy or mass. To be ruled out and evaluated as an outpatient with CT scanning. 2. Chest pain, seems to be non-cardiac in origin with a negative Persantine stress test. 3. History of restless legs syndrome. 4. Insomnia. 5. Breast cancer. 6. Gastroesophageal reflux disease. 7. Hyperlipidemia. 8. History of thyroid nodules. 9. History of premature ventricular contractions. PLAN: The patient is doing well. Will see her in the outpatient setting. We gave her my card. She will call the office and make an appointment. No additional recommendations are made. She could be discharged home from our perspective. MMODL / IJN: [id number] /
--- NOTE | 2019-09-19 13:49 | P.DS ---
Providers Date of admission: 09/18/19 15:28 Expected date of discharge: 09/19/19 Attending physician: Kalee Vidales Consults: 09/18/19 15:28 Consult Physician Urgent Consulting Provider: [facility] Consult Reason/Comments: Chest pain Do you want consulting provider notified?: Yes 09/18/19 15:36 Consult Physician Routine Consulting Provider: Odilon Galindo Reason/Comments: Mild thickening of the right paratracheal stripe Do you want consulting provider notified?: Yes Primary care physician: Tracie Aly [facility] Course: Disharge diagnosis 1. Chest pain. Initial troponin negative. Cardiology services have been consulted. Serial troponins ordered. EKG showing normal sinus rhythm normal ECG. Last stress test reported 2 years ago. Stress test completed today, which was negative, patient was seen by cardiology and was cleared for discharge. 2. Hypertensive urgency. Patient reports that her blood pressure was over 200 prior to biopsy. Blood pressure has improved. Home meds resume cardiology consult placed. Cardiology recommending home on Cozaar. Discussed monitoring blood pressure at home and keeping a log to bring to follow-up appointments. Patient to follow-up with Dr. Muniz. 3. Thickening of the right paratracheal stripe seen on chest x-ray. Pulmonary service was consulted. Patient was seen and cleared by Dr. Galindo. Follow-up with Dr. Galindo for further workup with outpatient computed tomography scan. Patient verbally stated that she understands to make follow-up appointment. 4. Essential hypertension. Home resumed 5. History of breast cancer 6. History of thyroid nodules. Patient was supposed to have thyroid biopsy today. Patient plans to reschedule biopsy 7. History of GERD 8. History of hyperlipidemia. Home meds resumed 9. Ex-smoker 10. History of anxiety 11. Hypomagnesemia. Magnesium replacement protocol. Repeat labs ordered. Resolved, magnesium 1.7. Hospital course This is a 79-year-old female patient of Dr. navarro. Patient presented for an elective thyroid biopsy today but prior to procedure patient reports that she started having back pain and chest pain with elevated blood pressure. Patient actually reports the back pain started last night but chest pain and high blood pressure did not start to occur until prior to procedure. Patient was instructed to go to ER for further evaluation. Patient reports that her chest pain and back pain did have relief when nitro paste was applied. Patient does have a past medical history of GERD hyperlipidemia, thyroid isn't, breast biopsy from her previous cardiac cath 5 years ago with no stents, anxiety and last stress test was 2 years ago which was normal. She does report that her sister and father both had heart attacks. Initial troponin negative. Patient denies any recent illness or cough. Chest x-ray was completed showing mild thickening of the right paratracheal stripe. Short-term follow-up CT of the chest is recommended for further evaluation. EKG completed showing normal sinus rhythm normal EKG. At this time patient denies chest pain or shortness of breath. Patient denies nausea vomiting or diarrhea. Patient denies any urinary burning or frequency On 09/19/2018 patient is alert and oriented 3 resting comfortably in bed. Stress test completed today, test was negative. Patient has been cleared by cardiology for discharge. Cardiology recommending patient go home on Cozaar, and patient will follow up with cardiology per recommendations. Patient denies any chest pain, back pain, or shortness of breath. She denies any nausea vomiting diarrhea. Denies any urinary frequency or burning. She was seen and cleared by pulmonary services. Patient to follow up with Dr. Galindo. I performed an examination of the patient and discussed their management with the Nurse Practitioner. I have reviewed the Nurse Practitioner's notes and agree with the documented findings and plan of care Patient Condition at Discharge: Stable Plan - Discharge Summary Discharge Rx Participant: No New Discharge Prescriptions: New Losartan [Cozaar] 100 mg PO DAILY 30 Days #30 tab Continue Omeprazole [PriLOSEC] 20 mg PO AC-BID Aspirin EC [Ecotrin Low Dose] 81 mg PO HS Fenofibrate [Lofibra] 54 mg PO DAILY Simvastatin [Zocor] 40 mg PO HS Biotin 5,000 mcg PO DAILY Atenolol 50 mg PO HS Fluticasone Nasal Bieber [Flonase Nasal Bieber] 2 spr EA NOSTRIL DAILY Famotidine [Pepcid] 20 mg PO HS Melatonin 3 mg PO HS Discharge Medication List Aspirin EC [Ecotrin Low Dose] 81 mg PO HS 04/12/14 [History] Atenolol 50 mg PO HS 04/12/14 [History] Biotin 5,000 mcg PO DAILY 04/12/14 [History] Fenofibrate [Lofibra] 54 mg PO DAILY 04/12/14 [History] Omeprazole [PriLOSEC] 20 mg PO AC-BID 04/12/14 [History] Simvastatin [Zocor] 40 mg PO HS 04/12/14 [History] Fluticasone Nasal Bieber [Flonase Nasal Bieber] 2 spr EA NOSTRIL DAILY 04/15/18 [History] Famotidine [Pepcid] 20 mg PO HS 09/18/19 [History] Melatonin 3 mg PO HS 09/18/19 [History] Losartan [Cozaar] 100 mg PO DAILY 30 Days #30 tab 09/19/19 [Rx] Follow up Appointment(s)/Referral(s): Tracie Aly MD [Primary Care Provider] - 1-2 days Odilon Galindo DO [Doctor of Osteopathic Medicine] - 10/03/19 10:15 am Shahid Blanton MD [STAFF PHYSICIAN] - 2 Weeks Activity/Diet/Wound Care/Special Instructions: heart healthy diet as tolerated Activity as tolerated Discharge Disposition: HOME SELF-CARE
--- NOTE | 2019-09-19 14:04 | EST ---
EXERCISE STRESS AGE: 79 SEX: F HT: 61" WT: 150 PROTOCOL: Persantine Cardiolite Stress Test HEART RATE REST: 64 BLOOD PRESSURE REST: 142/70 MAXIMUM HEART RATE ACHIEVED: 82 MAXIMUM BLOOD PRESSURE: 200/62 INDICATIONS: Chest pain. CLINICAL INFORMATION: Baseline EKG revealed normal sinus rhythm with nonspecific ST-T abnormality of a mild degree. With Persantine administration heart rate changed from 64-82 beats per minute, blood pressure changed from 142/70 to 200/62, and came back to baseline slowly. EKG remained inconclusive with minor resting EKG changes. By EKG criteria, this is an inconclusive Persantine stress test. The nuclear scan results, which are more pertinent, will be reported by the radiologist. MMODL / IJN: [id number] /
== END 2019-09-19 15:00 | disposition home or self-care (01) ==
LOC: EC 12:42 → 1SOBS 15:28
PROVIDERS: ADMIT Internal Medicine; ATTEND Internal Medicine
DX: R07.89 Other chest pain (principal); I16.0 Hypertensive urgency; I10 Essential (primary) hypertension; E83.42 Hypomagnesemia; E04.2 Nontoxic multinodular goiter; E78.00 Pure hypercholesterolemia, unspecified; K21.9 Gastro-esophageal reflux disease without esophagitis; M54.9 Dorsalgia, unspecified; E78.5 Hyperlipidemia, unspecified; I49.3 Ventricular premature depolarization; R91.8 Other nonspecific abnormal finding of lung field; F41.9 Anxiety disorder, unspecified; I71.02 Dissection of abdominal aorta; F40.240 Claustrophobia; G25.81 Restless legs syndrome; G47.00 Insomnia, unspecified; Z79.82 Long term (current) use of aspirin; Z79.899 Other long term (current) drug therapy; Z88.1 Allergy status to other antibiotic agents; Z91.048 Other nonmedicinal substance allergy status; Z85.3 Personal history of malignant neoplasm of breast; Z98.51 Tubal ligation status; Z87.891 Personal history of nicotine dependence; Z80.3 Family history of malignant neoplasm of breast; Z82.49 Family history of ischemic heart disease and other diseases of the circulatory system
CPT/HCPCS: 93005 ×2; 96372 ×2; 96376; 96374; 99285; 36415; 93017; 80061; 80053 ×2; 83735 ×2; 84484 ×2; 85025 ×2; 85610; 85730; 71046; 78452; G0378 ×2; A9500; J1644 ×2; J0280; J3475; J1245

== ENCOUNTER 2019-10-12 11:44 | Day surgery (SDC) | payer MEDICARE, BC ==
[2019-10-12] MEDS ORDERED: ALPRAZolam 0.25 MG TAB PO STA (12:41)
[2019-10-12 12:49] VITALS: RESP 16; TEMP 97.8
[2019-10-12 14:10] VITALS: BP 142/61; PULSE 60
--- NOTE | 2019-10-12 14:24 | US ---
EXAMINATION TYPE: US FNA thyroid each add lesion, US FNA thyroid each add lesion DATE OF EXAM: 10/12/2019 COMPARISON: NONE HISTORY: Thyroid nodules. Maximal barrier technique was utilized. After informed consent, skin overlying the right thyroid lob e deep lesion was localized with ultrasound and the overlying skin prepped and draped. Ultrasound was utilized using sterile technique. Lidocaine was used for local anesthesia. Five passes with a 25-ga uge needle were made into the nodule and aspirated specimen was submitted to cytology. Using similar technique the superficial mid pole right lobe thyroid nodule was aspirated with 5 passes with a 25-ga uge needle using ultrasound guidance. Following the procedure hemostasis achieved. No immediate comp lication. The patient discharged in stable condition. IMPRESSION: STATUS POST ULTRASOUND GUIDED FINE NEEDLE ASPIRATION OF RIGHT THYROID NODULES, PATHOLOGY IS PENDING. THIS PROCEDURE WAS PERFORMED BY THE UNDERSIGNED.
== END 2019-10-12 14:40 | disposition home or self-care (01) ==
LOC: RADPROMAIN 11:44
PROVIDERS: ATTEND Internal Medicine Endocrinology, Diabetes & Metabolism
DX: E04.1 Nontoxic single thyroid nodule (principal)
CPT/HCPCS: 10005; 10006; 88173; 88305

== ENCOUNTER → 2019-10-16 | Outpatient (CLI) | payer MEDICARE, BC ==
--- NOTE | 2019-10-16 14:51 | CT ---
EXAMINATION TYPE: CT angio abdomen DATE OF EXAM: 10/16/2019 COMPARISON: 05/07/2017 HISTORY: Follow up Abdominal aorta CT DLP: 316.1 mGycm CONTRAST: CTA thoracic and abdominal aorta with 3-D reconstruction is performed and with IV Contrast, patient i njected with 100 mL of Isovue 370. Contrast CTA of the abdominal aorta was performed from the lung bases through the base of the pelvis . 3-D reconstruction imaging obtained at a separate workstation. CONTRAST CT ABDOMEN AND PELVIS ABDOMINAL AORTA:No evidence for aneurysm. Abdominal aorta is ectatic. 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 Atheromatous changes detected. Iliac vesse ls of normal caliber and appear to be patent. LIVER/GB- No significant abnormality is seen. PANCREAS- No significant abnormality is seen. SPLEEN- No significant abnormality is seen. ADRENALS- No significant abnormality is seen. KIDNEYS/BLADDER- No significant abnormality is seen. BOWEL- No Significant abnormality GENITAL ORGANS: No gross abnormality seen. LYMPH NODES- No greater than 1cm abdominal or pelvic lymph nodes are appreciated. OSSEOUS STRUCTURES- No significant abnormality is seen. OTHER- No significant abnormality is seen. IMPRESSION- No evidence for aneurysm. Abdominal aorta is ectatic. 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 Atheromatous changes detected. Iliac vessels of normal mandy iber and appear to be patent.
== END | disposition home or self-care (01) ==
LOC: RADCTMAIN 12:50
PROVIDERS: ATTEND Internal Medicine Cardiovascular Disease
DX: I77.811 Abdominal aortic ectasia (principal); I70.90 Unspecified atherosclerosis
CPT/HCPCS: 82565; 84520; 74175; 36415; Q9967

== ENCOUNTER → 2020-07-02 | Outpatient (CLI) | payer MEDICARE, BC ==
--- NOTE | 2020-07-03 11:56 | MM ---
Reason for exam: screening (asymptomatic). Last mammogram was performed 1 year and 3 months ago. History: Patient is postmenopausal, had previous chest radiation therapy at age 60, and has history of breast cancer at age 58. Family history of premenopausal breast cancer in mother at age 42. Benign excisional biopsy of the left breast, August 10, 2008. Excisional biopsy of the right breast, 2000. Lumpectomy of the left breast, 2000. Radiation therapy of the left breast, 2000. Took hormonal contraceptives for 1 year beginning at age 22. Taking other hormone for 18 years beginning at age 50. Physical Findings: A clinical breast exam by your physician is recommended on an annual basis and results should be correlated with mammographic findings. MG 3D Screening Mammo W/Cad Bilateral CC and MLO view(s) were taken. Prior study comparison: March 20, 2019, bilateral MG 3d diag mammo w/cad DENNISE. February 07, 2018, bilateral MG 3d diag mammo w/cad DENN[facility]. The breast tissue is almost entirely fat. No significant changes when compared with prior studies. ASSESSMENT: Benign, BI-RAD 2 RECOMMENDATION: Routine screening mammogram of both breasts in 1 year.
== END | disposition home or self-care (01) ==
LOC: RADMAMWWP 10:41
PROVIDERS: ATTEND Family Medicine
DX: Z12.31 Encounter for screening mammogram for malignant neoplasm of breast (principal)
CPT/HCPCS: 77063; 77067

== ENCOUNTER → 2021-07-31 | Outpatient (CLI) | payer MEDICARE, BC ==
--- NOTE | 2021-08-01 12:53 | MM ---
Reason for exam: screening (asymptomatic). Last mammogram was performed 1 year and 1 month ago. History: Patient is postmenopausal, had previous chest radiation therapy at age 60, and has history of breast cancer at age 58. Family history of premenopausal breast cancer in mother at age 42. Benign excisional biopsy of the left breast, August 10, 2008. Excisional biopsy of the right breast, 2000. Lumpectomy of the left breast, 2000. Radiation therapy of the left breast, 2000. Took hormonal contraceptives for 1 year beginning at age 22. Taking other hormone for 18 years beginning at age 50. Physical Findings: A clinical breast exam by your physician is recommended on an annual basis and results should be correlated with mammographic findings. MG 3D Screening Mammo W/Cad Bilateral CC and MLO view(s) were taken. Prior study comparison: July 02, 2020, bilateral MG 3d screening mammo w/cad. March 20, 2019, bilateral MG 3d diag mammo w/cad DENNISE. There are scattered fibroglandular densities. Stable benign calcifications. Stable post operative changes left breast. No significant changes when compared with prior studies. ASSESSMENT: Benign, BI-RAD 2 RECOMMENDATION: Routine screening mammogram of both breasts in 1 year.
== END | disposition home or self-care (01) ==
LOC: RADMAMWWP 13:33
PROVIDERS: ATTEND Family Medicine
DX: Z12.31 Encounter for screening mammogram for malignant neoplasm of breast (principal); Z78.0 Asymptomatic menopausal state; Z85.3 Personal history of malignant neoplasm of breast; Z80.3 Family history of malignant neoplasm of breast; Z79.3 Long term (current) use of hormonal contraceptives
CPT/HCPCS: 77063; 77067

== ENCOUNTER → 2021-10-07 | Outpatient (CLI) | payer MEDICARE, BC ==
--- NOTE | 2021-10-07 13:45 | US ---
EXAMINATION TYPE: US thyroid st tissue head/neck DATE OF EXAM: 10/07/2021 COMPARISON: US 2019 CLINICAL HISTORY: E04.2 Nontoxic multinodular goiter. Thyroid nodules, history FNA GLAND SIZE: Right Lobe: 4.5 x 1.9 x 1.9 cm Overall Parenchyma: heterogenous Left Lobe: 4.1 x 1.2 x 1.1 cm Overall Parenchyma: heterogeneous Isthmus Thickness: 0.3 cm NODULES RIGHT: # of nodules measured on right: 1 1. 2.0 X 1.3 x 1.5 cm, mid lateral, mixed cystic and solid, hypoechoic nodule, which is wider than tall, with smooth margins, without echogenic foci. Prior size: 1.7 x 1.2 x 1.4 cm LEFT: # of nodules measured on left: 1 1. 1.0 X 0.7 x 0.9 cm, mid lateral, mixed cystic and solid, hypoechoic nodule, which is wider than tall, with smooth margins, without echogenic foci. Prior size: 0.9 x 0.5 x 0.5 cm ISTHMUS: # of nodules measured in the isthmus: 0 Bilateral neck scanned, no evidence of lymphadenopathy. Markedly heterogeneous normal-sized thyroid redemonstrated with stable 2.0 cm slightly hypoechoic rig ht-sided thyroid nodule which was sampled 2018 and stable 1.0 cm solid and cystic left-sided nodule. IMPRESSION: As above. No significant change from most recent prior study.
[2021-10-07 14:09] LABS: T4, Free (Free Thyroxine) 1.13 ng/dL (0.78-2.19)
== END | disposition home or self-care (01) ==
LOC: RADUSWWP 12:48
PROVIDERS: ATTEND Internal Medicine Endocrinology, Diabetes & Metabolism
DX: E04.2 Nontoxic multinodular goiter (principal)
CPT/HCPCS: 36415; 76536; 84439; 84443

== ENCOUNTER → 2022-03-03 | Outpatient (CLI) | payer MEDICARE, BC | END | disposition home or self-care (01) | LOC: RADUSWWP 10:52 | PROVIDERS: ATTEND Nurse Practitioner Family | DX: Z53.9 Procedure and treatment not carried out, unspecified reason (principal) ==

== ENCOUNTER → 2022-03-10 | Outpatient (CLI) | payer MEDICARE, BC ==
--- NOTE | 2022-03-10 15:09 | USB ---
Reason for exam: clinical finding. History: Patient is postmenopausal, had previous chest radiation therapy at age 60, and has history of breast cancer at age 58. Family history of premenopausal breast cancer in mother at age 42. Benign excisional biopsy of the left breast, August 10, 2008. Excisional biopsy of the right breast, 2000. Lumpectomy of the left breast, 2000. Radiation therapy of the left breast, 2000. Took hormonal contraceptives for 1 year beginning at age 22. Taking other hormone for 18 years beginning at age 50. Physical Findings: A clinical breast exam by your physician is recommended on an annual basis and results should be correlated with mammographic findings. US Breast Limited RT Right limited breast ultrasound including focal area of concern, retroareolar and axilla demonstrates a 9 x 3 x 10mm oval, hypoechoic lesion at 12 o'clock. Scanned 12-3 o'clock. Results were given to the patient verbally at the time of the exam. ASSESSMENT: Incomplete: need additional imaging evaluation, BI-RAD 0 RECOMMENDATION: Follow-up diagnostic mammogram of the right breast. Manage patient on a clinical basis.
--- NOTE | 2022-03-10 16:03 | US ---
EXAMINATION TYPE: US thyroid st tissue head/neck DATE OF EXAM: 03/10/2022 COMPARISON: US CLINICAL HISTORY: E042 NONTOXIC MULTINODULAR GOITER. Goiter/ Follow-up Pt very dizzy when lying down, unable to extend neck, difficult exam GLAND SIZE: Right Lobe: 3.8 x 2.0 x 1.9 cm Overall Parenchyma: heterogenous Left Lobe: 3.8 x 1.6 x 1.1 cm Overall Parenchyma: heterogeneous Isthmus Thickness: 0.2 cm NODULES RIGHT: # of nodules measured on right: 1 1. 2.09 X 1.3 x 1.4 cm, mid lateral, mixed cystic and solid, hypoechoic nodule, which is wider than tall, with smooth margins, without echogenic foci. Prior size: 2.0 x 1.3 x 1.5 cm LEFT: # of nodules measured on left: 1 1. 0.8 X 0.5 x 0.8 cm, mid, mixed cystic and solid, hypoechoic nodule, which is wider than tall, wi th smooth margins, without echogenic foci. Prior size: 1.0 x 0.7 x 0.9 cm ISTHMUS: # of nodules measured in the isthmus: 0 Bilateral neck scanned, no evidence of lymphadenopathy. Heterogeneous thyroid, stable nodules bilater ally. IMPRESSION: Mildly suspicious right lobe thyroid nodule. Follow-up exam recommended in one year. 2017 ACR TI-RADS LEVEL: TR-RADS 3 - Mildly Suspicious: Follow if > 1.5 cm, FNA if > 2.5 cm *Highest TI-RADS level nodule reported
== END | disposition home or self-care (01) ==
LOC: RADUSWWP 13:51
PROVIDERS: ATTEND Internal Medicine Endocrinology, Diabetes & Metabolism
DX: E04.2 Nontoxic multinodular goiter (principal); N63.10 Unspecified lump in the right breast, unspecified quadrant; Z78.0 Asymptomatic menopausal state; Z85.3 Personal history of malignant neoplasm of breast; Z80.3 Family history of malignant neoplasm of breast; R92.8 Other abnormal and inconclusive findings on diagnostic imaging of breast
CPT/HCPCS: 76536

== ENCOUNTER → 2022-03-10 | Outpatient (CLI) | payer MEDICARE, BC ==
[2022-03-10 23:12] LABS: T4, Free (Free Thyroxine) 1.19 ng/dL (0.800-1.800)
== END | disposition home or self-care (01) ==
LOC: LABWHC1 13:54
PROVIDERS: ATTEND Internal Medicine Endocrinology, Diabetes & Metabolism
DX: E04.2 Nontoxic multinodular goiter (principal)
CPT/HCPCS: 36415; 84439; 84443

== ENCOUNTER → 2022-08-12 | Outpatient (CLI) | payer MEDICARE, BC ==
--- NOTE | 2022-08-13 08:49 | MM ---
Reason for Exam: Screening (asymptomatic). Last screening mammogram was performed 12 month(s) ago. Patient History: Menarche at age 11. First Full-Term at age 20. Postmenopausal. Breast cancer, left, age 58. Previous chest radiation therapy at age 60. Hormonal Contraceptives, starting at age 22 for 1 year. 08/10/2008, Benign Excisional Biopsy on the left side. 2000, Lumpectomy on the Left side. 2000, Excisional Biopsy on the Right side. 2000, Radiation Therapy on the left side. Mother had breast cancer, age 42. Prior Study Comparison: 07/02/2020 Bilateral Screening Mammogram, [facility]. 07/31/2021 Bilateral Screening Mammogram, [facility]. 03/10/2022 Right Diagnostic Mammogram, [facility]. Tissue Density: There are scattered fibroglandular densities. Findings: Analyzed By CAD. Posttraumatic changes of the left breast. There are scattered bilateral calcifications with a benign appearance. There is no suspicious group of microcalcifications or new suspicious mass in either breast. Overall Assessment: Benign, BI-RAD 2 Management: Screening Mammogram of both breasts in 1 year. A clinical breast exam by your physician is recommended on an annual basis and results should be correlated with mammographic findings. [facility] will attempt to contact patient to return for supplemental views and ultrasound if indicated. Electronically signed and approved by: Odilon Perez DO
== END | disposition home or self-care (01) ==
LOC: RADMAMWWP 13:13
PROVIDERS: ATTEND Student in an Organized Health Care Education/Training Program
DX: Z12.31 Encounter for screening mammogram for malignant neoplasm of breast (principal); Z85.3 Personal history of malignant neoplasm of breast; Z78.0 Asymptomatic menopausal state
CPT/HCPCS: 77063; 77067

== ENCOUNTER → 2023-02-25 | Outpatient (CLI) | payer MEDICARE, BC ==
[2023-02-25 11:19] VITALS: BP 177/76; PULSE 57; RESP 18; TEMP 98.1
--- NOTE | 2023-02-25 11:43 | P.GSHP ---
History of Present Illness H&P Date: 02/25/23 Chief Complaint: Left breast lumpectomy 2000 Marlene is an 82-year-old white female seen in consultation for Dr. Henry. She underwent a bilateral mammogram on 08-12-22 this was felt to be benign BIRADS 2. She had a repeat diagnostic left breast mammogram performed on 4622 which is also felt to be benign BIRADS 2. The repeat left breast mammogram was done secondary to soreness in the UOQ of the left breast which has resolved. She is not complaining of any nipple discharge or skin changes. She is not complaining of any lumps masses or nodules which are new and her either breast. 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 She then had reexcision was done secondary to concern over positive margins. She also had radiation therapy. She did not have any chemotherapy or hormonal therapy. She subsequently had a left breast biopsy approximately 7 years ago which was benign. She did not have any nodes removed under her arm. She was told the cancer was stage 0. CAffiene: 1 cup/day nicotine: stopped 40 years ago, used to smoke intermittently socially for 8 years chocolate: occasional BCP: 2 years Family History: mother: breast cancer at 42, from it Hormonal History: menarche: 11 , breast fed;no, age at first : 20 menopause: 45 hormones: 1 month Surgical History: breast surgery left three times tubaligation Medical History: HTN high cholesterol PVC follows with vascular surgeon for a "bulge" in aorta thyroid nodules Social History: Attending: As above Alcohol: Occasional Drugs:none - Constitutional Constitutional: Denies chills, Denies fever - EENT Eyes: denies blurred vision, denies pain Ears: bilateral: tinnitus, deny: decreased hearing Ears, nose, mouth and throat: Denies headache, Denies sore throat - Breasts Breasts: bilateral: as per HPI - Cardiovascular Cardiovascular: Reports shortness of breath, Denies chest pain - Respiratory Respiratory: Denies cough, Denies 7 - Gastrointestinal Gastrointestinal: Denies abdominal pain, Denies diarrhea, Denies nausea, Denies vomiting - Genitourinary (Female) Genitourinary: Denies dysuria, Denies hematuria - Menstruation Menstruation: Reports postmenopausal - Musculoskeletal Musculoskeletal: Reports myalgias - Integumentary Integumentary: Denies pruritus, Denies rash - Neurological Neurological: Denies numbness, Denies weakness - Psychiatric Psychiatric: Reports anxiety, Denies depression - Endocrine Endocrine: Reports fatigue, Reports weight change - Hematologic/Lymphatic Comment: baby aspirin - Allergic/Immunologic Allergic/Immunologic: Reports as per HPI Past Medical History Past Medical History: Cancer, GERD/Reflux, Hyperlipidemia, Thyroid Disorder Additional Past Medical History / Comment(s): THYROID NODULES,ARRYTHMIA-PVC'S,, BREAST CANCER History of Any Multi-Drug Resistant Organisms: None Reported Past Surgical History: Breast Surgery, Heart Catheterization, Tubal Ligation Additional Past Surgical History / Comment(s): LEFT BREAST LUMPECTOMY, RIGHT BREAST BIOPSY,COLONOSCOPY,EGD, Past Anesthesia/Blood Transfusion Reactions: No Reported Reaction Past Psychological History: Anxiety Additional Psychological History / Comment(s): MINOR ANXIETY. Past Alcohol Use History: Occasional Additional Past Alcohol Use History / Comment(s): QUIT SMOKING 30 + YRS AGO Past Drug Use History: None Reported - Past Family History Mother Family Medical History: Cancer Additional Family Medical History / Comment(s): BREAST. Medications and Allergies Home Medications Medication Instructions Recorded Confirmed Type Aspirin EC [Ecotrin Low Dose] 81 mg PO HS 04/12/14 10/12/19 History Atenolol 50 mg PO HS 04/12/14 10/12/19 History Biotin 5,000 mcg PO DAILY 04/12/14 10/12/19 History Fenofibrate [Lofibra] 54 mg PO DAILY 04/12/14 10/12/19 History Omeprazole [PriLOSEC] 20 mg PO AC-BID 04/12/14 10/12/19 History Simvastatin [Zocor] 40 mg PO HS 04/12/14 10/12/19 History Fluticasone Nasal Devers [Flonase 2 spr EA NOSTRIL DAILY 04/15/18 10/12/19 His tory Nasal Devers] Melatonin 3 mg PO HS 09/18/19 10/12/19 History Losartan [Cozaar] 100 mg PO DAILY 30 Days #30 tab 09/19/19 10/12/19 Rx amLODIPine [Norvasc] 5 mg PO DAILY 09/28/19 10/12/19 History Allergies Allergy/AdvReac Type Severity Reaction Status Date / Time erythromycin base AdvReac Intermediate Nausea Verified 10/12/19 12:40 [Erythromycin Base] ADHESIVE TAPE AdvReac Intermediate BLISTERS Uncoded 10/12/19 12:40 Surgical - Exam BMI: 29.3 - General no distress - Eyes normal ocular movement - Neck trachea midline - Respiratory normal respiratory effort - Cardiovascular Rhythm: regular Heart Sounds: normal: S1, S2 - Abdomen Abdomen: soft, non tender, no guarding, no rigid, no rebound - Integumentary normal turgor - Neurologic no disoriented, no combative - Musculoskeletal normal gait, normal posture - Psychiatric oriented to time, oriented to person, oriented to place, speech is normal, memory intact Breast Exam: BRA: 38C Inspection: Asymmetry of the breast related to prior left breast surgery, left breast smaller than the right breast scar tissue related to prior surgery and radiation, bilateral grade 3 ptosis Palpation: Right breast: Multi-positional exam fibrocystic changes no dominant masses or notches of concern Right axilla: No adenopathy of concern Left breast: Multi-positional exam post operative and radiation changes, no discrete dominant masses or nodules of concern Left axilla: No adenopathy of concern Results Mammogram personally reviewed Assessment and Plan Assessment: Impression: Patient status post left breast lumpectomy 2000 she did not have chemo or hormonal therapy she did have radiation therapy, reexcision in approximately 2006 with asymmetry of the breast Recent left breast mammogram 4623 benign BIRADS 2 most recent bilateral mammogram was in July 2022 which was BIRADS 2 Patient had some soreness in her breast which has resolved Plan: Bilateral mammogram in July 2023 with physician exam at that time Patient follow-up sooner any questions or concerns CC: Dr. Henry
== END ==
LOC: WWCWWP 09:21
PROVIDERS: ATTEND Surgery
DX: Z85.3 Personal history of malignant neoplasm of breast (principal); N64.59 Other signs and symptoms in breast; E78.00 Pure hypercholesterolemia, unspecified; I10 Essential (primary) hypertension; K21.9 Gastro-esophageal reflux disease without esophagitis; N60.11 Diffuse cystic mastopathy of right breast; N64.89 Other specified disorders of breast; Z80.3 Family history of malignant neoplasm of breast; Z92.3 Personal history of irradiation; Z91.048 Other nonmedicinal substance allergy status; E78.5 Hyperlipidemia, unspecified; I49.3 Ventricular premature depolarization; Z79.82 Long term (current) use of aspirin; Z87.891 Personal history of nicotine dependence; Z88.1 Allergy status to other antibiotic agents

== ENCOUNTER → 2023-02-25 | Outpatient (CLI) | payer MEDICARE, BC ==
--- NOTE | 2023-02-25 10:07 | MM ---
Reason for Exam: Clinical finding. Last screening mammogram was performed 7 month(s) ago. Patient History: Menarche at age 11. First Full-Term at age 20. Postmenopausal. Breast cancer, left, age 58. Previous chest radiation therapy at age 60. Hormonal Contraceptives, starting at age 22 for 1 year. 08/10/2008, Benign Excisional Biopsy on the left side. 2000, Lumpectomy on the Left side. 2000, Excisional Biopsy on the Right side. 2000, Radiation Therapy on the left side. Mother had breast cancer, age 42. Prior Study Comparison: 07/31/2021 Bilateral Screening Mammogram, [facility]. 03/10/2022 Right Diagnostic Mammogram, [facility]. 08/12/2022 Bilateral MG 3D screening mammo w/cad, [facility]. Tissue Density: Left: There are scattered fibroglandular densities. Findings: Analyzed By CAD. Postsurgical and posttreatment changes left breast. Benign coil cyst and dystrophic calcifications are present. Chronic nodularity lateral left breast. No significant change from prior exams. Overall Assessment: Benign, BI-RAD 2 Management: Screening Mammogram of both breasts in 5 months. Further clinical management of left breast soreness. Patient should continue monthly self breast exams. This exam should not preclude additional follow-up of suspicious palpable abnormalities. Results were given to the patient verbally at the time of exam. Electronically signed and approved by: Wilfredo Graves M.D. Radiologist
== END | disposition home or self-care (01) ==
LOC: RADMAMWWP 09:21
PROVIDERS: ATTEND Family Medicine
DX: N64.4 Mastodynia (principal); N64.59 Other signs and symptoms in breast; Z78.0 Asymptomatic menopausal state; Z80.3 Family history of malignant neoplasm of breast; Z92.3 Personal history of irradiation; Z85.3 Personal history of malignant neoplasm of breast
CPT/HCPCS: 77065; G0279; 77061

== ENCOUNTER → 2023-03-02 | Outpatient (CLI) | payer MEDICARE, BC ==
--- NOTE | 2023-03-02 16:36 | US ---
EXAMINATION TYPE: US thyroid st tissue head/neck DATE OF EXAM: 03/02/2023 COMPARISON: 03/10/2022 CLINICAL HISTORY: E04.2 Nontoxic multinodular goiter. Follow up nodules GLAND SIZE: Right Lobe: 4.1 x 1.9 x 1.9 cm Overall Parenchyma: heterogenous Left Lobe: 4.1 x 1.2 x 1.6 cm Overall Parenchyma: heterogeneous Isthmus Thickness: cm NODULES RIGHT: # of nodules measured on right: 2 1. 1.9 X 1.3 x 1.5 cm, lower lateral, Prior size: 2.1 x 1.3 x 1.4 cm TIRADS Score: 3 TIRADS Category 3: Mildly Suspicious Composition: Mixed cystic and solid (1 point). Echogenicity: Hypoechoic (2 points). Shape: Wider than tall (0 points). Margin: Smooth (0 points). Echogenic foci: None or large comet-tail artifacts (0 points) Recommendation: If >2.5cm: FNA; If >1.5cm: Follow up at 1,3,5 years 2. 1.2 X 0.8 x 0.8 cm, lower mid Prior size: No prior TIRADS Score: 4 TIRADS Category 4: Moderately Suspicious Composition: Solid or almost completely solid (2 points). Echogenicity: Hypoechoic (2 points). Shape: Wider than tall (0 points). Margin: Smooth (0 points). Echogenic foci: None or large comet-tail artifacts (0 points) Recommendation: If >1.5cm: FNA; If >1cm: Follow up at 1,2, 3,5 years LEFT: # of nodules measured on left: 1 1. 0.9 X 0.8 x 0.7 cm, mid mid, Prior size: 0.8 x .05 x 0.8 cm TIRADS Score: 2 TIRADS Category 2: Not Suspicious Composition: Mixed cystic and solid (1 point). Echogenicity: Hyperechoic or isoechoic (1 point). Shape: Wider than tall (0 points). Margin: Smooth (0 points). Echogenic foci: None or large comet-tail artifacts (0 points) Recommendation: No FNA ISTHMUS: # of nodules measured in the isthmus: 0 Bilateral neck scanned, no evidence of lymphadenopathy. IMPRESSION: Thyroid nodules that meet criteria for one-year follow-up.
[2023-03-02 21:46] LABS: T4, Free (Free Thyroxine) 1.07 ng/dL (0.800-1.800)
== END | disposition home or self-care (01) ==
LOC: RADUSWWP 13:40
PROVIDERS: ATTEND Internal Medicine Endocrinology, Diabetes & Metabolism
DX: E04.2 Nontoxic multinodular goiter (principal)
CPT/HCPCS: 76536; 84439; 84443